=== PATIENT | female | born 1985 | race Two or more races ===

== ENCOUNTER 2023-06-25 10:08 | Emergency (ER) | payer OTHER ==
[~2023-06-25] VITALS: Ht 165.1 cm; Wt 81.6 kg
[2023-06-25] MEDS ORDERED: FOLIC ACID 1 MG TABLET PO ONE (11:00)
[2023-06-25] MEDS ORDERED: MULTIVITAMINS,THERAGRAN 1 UDTAB TABLET PO SCH (11:00)
[2023-06-25] MEDS ORDERED: THIAMINE HCL 100 MG TABLET PO ONE (11:00)
[2023-06-25] MEDS ORDERED: MULTIVITAMINS,THERAGRAN 1 UDTAB TABLET ONE (11:14)
[2023-06-25] MEDS ORDERED: THIAMINE HCL 100 MG TABLET ONE (11:15)
[2023-06-25] MEDS ORDERED: FOLIC ACID 1 MG TABLET ONE (11:15)
[2023-06-25 11:25] VITALS: BP 114/88; TEMP 98.7; O2SAT 100
== END 2023-06-25 11:26 | disposition home or self-care (01) ==
LOC: ER 10:19
DX: G62.9 Polyneuropathy, unspecified (principal)